=== PATIENT | male | born 1955 | race Caucasian/White ===

== ENCOUNTER 2023-10-18 10:01 | Outpatient (RCR) | payer MEDICARE, SELFPAY | END 2023-10-18 23:59 | disposition home or self-care (01) | LOC: RPT 10:01 | PROVIDERS: ATTENDING PHYSICIAN Specialist; FAMILY PHYSICIAN Family Medicine | DX: N39.3 Stress incontinence (female) (male) (principal); N39.41 Urge incontinence; R27.8 Other lack of coordination; M62.81 Muscle weakness (generalized) | CPT/HCPCS: 97112; 97530 ==

== ENCOUNTER 2023-12-08 14:05 | Outpatient (RCR) | payer MEDICARE, SELFPAY | END 2023-12-08 23:59 | disposition home or self-care (01) | LOC: RPT 14:05 | PROVIDERS: ATTENDING PHYSICIAN Specialist; FAMILY PHYSICIAN Family Medicine | DX: N39.3 Stress incontinence (female) (male) (principal); N39.41 Urge incontinence; Z73.6 Limitation of activities due to disability; R27.8 Other lack of coordination; M62.81 Muscle weakness (generalized); Z85.46 Personal history of malignant neoplasm of prostate | CPT/HCPCS: 97014; 97530 ==

== ENCOUNTER 2024-01-12 09:45 | Outpatient (RCR) | payer MEDICARE, SELFPAY | END 2024-01-12 23:59 | disposition home or self-care (01) | LOC: RPT 09:45 | PROVIDERS: ATTENDING PHYSICIAN Specialist; FAMILY PHYSICIAN Family Medicine | DX: N39.3 Stress incontinence (female) (male) (principal); N39.41 Urge incontinence; Z73.6 Limitation of activities due to disability; R27.8 Other lack of coordination; M62.81 Muscle weakness (generalized); Z85.46 Personal history of malignant neoplasm of prostate | CPT/HCPCS: 97014; 97112; 97530 ==

== ENCOUNTER 2024-02-09 13:55 | Outpatient (RCR) | payer MEDICARE, SELFPAY | END 2024-02-09 23:59 | disposition home or self-care (01) | LOC: RPT 13:55 | PROVIDERS: ATTENDING PHYSICIAN Specialist; FAMILY PHYSICIAN Family Medicine | DX: N39.3 Stress incontinence (female) (male) (principal); N39.41 Urge incontinence; Z73.6 Limitation of activities due to disability; R27.8 Other lack of coordination; M62.81 Muscle weakness (generalized) | CPT/HCPCS: 97014; 97112; 97530 ==

== ENCOUNTER 2024-03-08 14:47 | Outpatient (RCR) | payer MEDICARE, SELFPAY | END 2024-03-08 23:59 | disposition home or self-care (01) | LOC: RPT 14:47 | PROVIDERS: ATTENDING PHYSICIAN Specialist; FAMILY PHYSICIAN Family Medicine | DX: N39.3 Stress incontinence (female) (male) (principal); N39.41 Urge incontinence; Z73.6 Limitation of activities due to disability; R27.8 Other lack of coordination; M62.81 Muscle weakness (generalized); Z85.46 Personal history of malignant neoplasm of prostate | CPT/HCPCS: 97014; 97112; 97530 ==

== ENCOUNTER 2024-04-05 14:07 | Outpatient (RCR) | payer MEDICARE, SELFPAY | END 2024-04-05 23:59 | disposition home or self-care (01) | LOC: RPT 14:07 | PROVIDERS: ATTENDING PHYSICIAN Specialist; FAMILY PHYSICIAN Family Medicine | DX: N39.46 Mixed incontinence (principal); R27.8 Other lack of coordination; M62.81 Muscle weakness (generalized) | CPT/HCPCS: 97112; 97530 ==

== ENCOUNTER → 2024-09-25 13:47 | Outpatient (REF) | payer MEDICARE, SELFPAY | LOC: HWRCS 13:47 | PROVIDERS: ATTENDING PHYSICIAN Internal Medicine; FAMILY PHYSICIAN Family Medicine | DX: I10 Essential (primary) hypertension (principal); I44.7 Left bundle-branch block, unspecified; I35.1 Nonrheumatic aortic (valve) insufficiency | CPT/HCPCS: 93306 ==

== ENCOUNTER → 2024-09-27 06:57 | Outpatient (REF) | payer MEDICARE, SELFPAY ==
[2024-09-27 08:02] LABS: ALT (SGPT) 29 U/L (0-50); AST (SGOT) 27 U/L (17-59); Albumin 4.6 g/dl (3.5-5.0); Alkaline Phosphatase 71 U/L (38-126); Blood Urea Nitrogen 35 mg/dl (9-20); Calcium 10.1 mg/dl (8.4-10.2); Carbon Dioxide 28 mmol/L (22-30); Chloride 98 mmol/L (98-107); Glucose 172 mg/dl (70-99); HDL Cholesterol 46 mg/dl; LDL Cholesterol, Calculated 80 mg/dl; Potassium 4.6 mmol/L (3.5-5.1); Sodium 141 mmol/L (135-145); Total Cholesterol 139 mg/dl (50-199); Total Protein 7.8 g/dl (6.3-8.2); Triglyceride 68 mg/dl (10-149); Uric Acid 8.2 mg/dl (3.5-8.5); Very Low Density Lipoprotein 13 mg/dl (0-30); eGFR > 60.00
[2024-09-27 08:38] LABS: Glycohemoglobin (HgbA1c) 5.8 % (4.0-5.6)
== END ==
LOC: REG 06:57
PROVIDERS: ATTENDING PHYSICIAN Family Medicine
DX: R73.01 Impaired fasting glucose (principal); Z87.39 Personal history of other diseases of the musculoskeletal system and connective tissue; I10 Essential (primary) hypertension; E78.2 Mixed hyperlipidemia
CPT/HCPCS: 36415; 80053; 80061; 83036; 84550

== ENCOUNTER → 2024-10-17 16:21 | Outpatient (REF) | payer MEDICARE, SELFPAY ==
[2024-10-17 17:46] LABS: PSA, Total - Diagnostic < 0.06 ng/ml (0.0-4.0)
== END ==
LOC: REG 16:21
PROVIDERS: ATTENDING PHYSICIAN Specialist
DX: C61 Malignant neoplasm of prostate (principal)
CPT/HCPCS: 36415; 84153

== ENCOUNTER → 2025-03-28 08:06 | Outpatient (REF) | payer MEDICARE, SELFPAY ==
[2025-03-28 09:53] LABS: Uric Acid 5.4 mg/dl (3.5-8.5)
== END ==
LOC: REG 08:06
PROVIDERS: ATTENDING PHYSICIAN Nurse Practitioner Family
DX: Z87.39 Personal history of other diseases of the musculoskeletal system and connective tissue (principal)
CPT/HCPCS: 36415; 84550

== ENCOUNTER → 2025-10-09 07:31 | Outpatient (REF) | payer MEDICARE, SELFPAY ==
[2025-10-09 09:11] LABS: Hematocrit 45.3 % (39.0-52.0); Hemoglobin 15.4 g/dL (13.0-18.0); Mean Corp Hgb Conc. 34.0 g/dL (33.0-37.0); Mean Corpuscular Volume 95.4 fL (80.0-94.0); Nucleated Red Blood Cells % 0 % (-); Platelet Count 165 10^3/uL (130-400); Red Cell Dist. Width 12.5 % (11.5-14.5)
[2025-10-09 09:24] LABS: ALT (SGPT) 31 U/L (0-50); AST (SGOT) 28 U/L (17-59); Albumin 4.2 g/dl (3.5-5.0); Alkaline Phosphatase 61 U/L (38-126); Blood Urea Nitrogen 30 mg/dl (9-20); Calcium 9.5 mg/dl (8.4-10.2); Carbon Dioxide 30 mmol/L (22-30); Chloride 101 mmol/L (98-107); Glucose 107 mg/dl (70-99); HDL Cholesterol 38 mg/dl; Iron 125 ug/dl (49-181); LDL Cholesterol, Calculated 53 mg/dl; Magnesium 1.5 mg/dl (1.6-2.3); Potassium 4.1 mmol/L (3.5-5.1); Sodium 137 mmol/L (135-145); Total Protein 7.4 g/dl (6.3-8.2); Uric Acid 9.2 mg/dl (3.5-8.5); Very Low Density Lipoprotein 38 mg/dl (0-30); eGFR > 60.00
[2025-10-09 09:33] LABS: Total Iron Binding Capacity 294 ug/dl (261-462)
[2025-10-09 09:59] LABS: Ferritin 189.0 ng/ml (17.9-464.0)
== END ==
LOC: REG 07:31
PROVIDERS: ATTENDING PHYSICIAN Family Medicine
DX: R79.9 Abnormal finding of blood chemistry, unspecified (principal); Z01.89 Encounter for other specified special examinations; Z79.899 Other long term (current) drug therapy; Z13.1 Encounter for screening for diabetes mellitus
CPT/HCPCS: 36415; 80053; 80061; 82728; 83540; 83550; 83735; 84100; 84443; 84550; 85025

== ENCOUNTER → 2025-10-23 11:29 | Outpatient (REF) | payer MEDICARE, SELFPAY ==
[2025-10-23 16:54] LABS: PSA, Total - Diagnostic < 0.06 ng/ml (0.0-4.0)
== END ==
LOC: REG 11:29
PROVIDERS: ATTENDING PHYSICIAN Specialist
DX: C61 Malignant neoplasm of prostate (principal)
CPT/HCPCS: 36415; 84153